=== PATIENT | female | born 1960 | race Caucasian/White ===

== ENCOUNTER 2019-01-11 16:07 | Outpatient (REF) | payer OTHER, SELFPAY ==
--- NOTE | 2019-01-11 14:00 | PAPFT_PTH ---
PATIENT: JULES VARELA LOC: [facility] U#:[id number] AGE/SX: 58/F ROOM: RE01/11/[address]: Bonita Enamorado : 1960 BED: DIS: 01/11/2019 SPEC #: [id number] RECD: 01/11/19 18:01 STATUS: NEDA GRACE #: [id number] JOSSELIN: 01/11/19 14:[address]: Bonita Enamorado DEPT: [facility] Cytology RECD BY: Dagmar Chau Tissues: 1 - CX/ENDOCX FOR PAP SMEARS Procedures: PAP THIN PREP/[facility] Screening HPV DNA PROBE Comments: [id number]
== END 2019-01-11 16:27 ==
LOC: LBN 16:07
PROVIDERS: Visit Provider Obstetrics & Gynecology Gynecology
DX: Z12.4 Encounter for screening for malignant neoplasm of cervix (principal); Z11.51 Encounter for screening for human papillomavirus (HPV)
CPT/HCPCS: 88142; 87624

== ENCOUNTER 2019-02-28 11:55 | Outpatient (REF) | payer OTHER, SELFPAY ==
--- NOTE | 2019-02-28 11:45 | ENDO_PTH ---
PATIENT: JULES VARELA LOC: [facility] U#:[id number] AGE/SX: 58/F ROOM: RE02/28/[address]: Bonita Enamorado : 1960 BED: DIS: 02/28/2019 SPEC #: [id number] RECD: 02/28/19 12:48 STATUS: NEDA REQ #: [id number] JOSSELIN: 02/28/19 11:[address]: Bonita Enamorado DEPT: Surgical Specimen RECD BY: Dagmar Chau ENTERED: 02/28/19 12:49 SP TYPE: Endo OTHR DR: Unknown,Unknown Tissues: 1 - ENDOCERVICAL BX/CURRETTE Procedures: GROSS AND MICRO LEVEL 4 Comments: [id number]
== END 2019-02-28 12:15 ==
LOC: LBN 11:55
PROVIDERS: Visit Provider Obstetrics & Gynecology Gynecology
DX: N87.9 Dysplasia of cervix uteri, unspecified (principal); R87.610 Atypical squamous cells of undetermined significance on cytologic smear of cervix (ASC-US); R87.810 Cervical high risk human papillomavirus (HPV) DNA test positive
CPT/HCPCS: 88305

== ENCOUNTER 2020-05-06 10:39 | Outpatient (REF) | payer OTHER, SELFPAY ==
--- NOTE | 2020-05-06 10:00 | PAPFT_PTH ---
PATIENT: JULES VARELA LOC: [facility] U#:[id number] AGE/SX: 59/F ROOM: RE05/06/[address]: Bonita Enamorado : 1960 BED: DIS: 05/06/2020 SPEC #: [id number] RECD: 05/06/20 12:54 STATUS: NEDA REQ #: [id number] JOSSELIN: 05/06/20 10:[address]: Bonita Enamorado DEPT: [facility] Cytology RECD BY: Dagmar Chau ENTERED: 05/06/20 12:54 SP TYPE: PAPFT OT DR: Unknown,Unknown Tissues: 1 - CX/ENDOCX FOR PAP SMEARS Procedures: PAP THIN PREP/[facility] Screening HPV DNA PROBE Comments: [id number]
== END 2020-05-06 10:59 ==
LOC: LBN 10:39
PROVIDERS: Visit Provider Obstetrics & Gynecology Gynecology
DX: Z12.4 Encounter for screening for malignant neoplasm of cervix (principal); Z11.51 Encounter for screening for human papillomavirus (HPV); Z87.42 Personal history of other diseases of the female genital tract
CPT/HCPCS: 88142; 87624